=== PATIENT | female | born 1940 | race Caucasian/White ===

== ENCOUNTER 2020-09-08 11:53 | Observation (INO) | payer MEDICARE ==
[~2020-09-08] VITALS: Ht 167.6 cm; Wt 52.3 kg
--- NOTE | 2020-09-08 11:57 | NUR ---
PATIENT TO ROOM VIA WHEELCHAIR ACCOMPAINED BY DAUGHTER.
[2020-09-08] MEDS ORDERED: DONEPEZIL HCL5 M1 PO (12:30)
[2020-09-08] MEDS ORDERED: ALPRAZOLAM1 MG PO (12:30)
--- NOTE | 2020-09-08 12:30 | NUR ---
PT RESTING ON STREETCHER IN NO APPARENT DISTRESS. RESP EVEN AUN UNLABORED. SKIN WARM AND DRY. VERALIZES NO NEEDS AT THIS TIME.
[2020-09-08] MEDS ORDERED: LEVETIRACETAM500 MG PO (12:31)
[2020-09-08] MEDS ORDERED: DIVALPROEX SOD250 MG PO (12:31)
[2020-09-08] MEDS ORDERED: SERTRALINE50 MG PO (12:32)
[2020-09-08] MEDS ORDERED: SEROQUEL25 MG PO (12:33)
[2020-09-08] MEDS ORDERED: ATIVAN1 M1 PO (12:34)
--- NOTE | 2020-09-08 13:30 | NUR ---
PT RESTING ON STRETCHER IN NO APPARENT DISTRESS. RESP EVEN AN UNLABORED. SKIN WAWRM AND DRY. VERBALIZES NO NEEDS AT THIS TIME. DAUGHTER BEDSIDE. CALL LIGHT WITHIN REACH.
--- NOTE | 2020-09-08 14:00 | NUR ---
PT RETURNS FROM RADIOLOGY. ADVISED DAUGHTER AND PT OF WAIT TIME FOR RESULTS. VERBALIZED UNDERSTANDING. DENIES ANY NEEDS. CALL LIGHT WITHIN REACH.
--- NOTE | 2020-09-08 15:00 | NUR ---
PT RESTING ON STRETCHER COMFORTABLY AT THISD TIME. NEW IV ESTABLISHED. DAUGHTER LEFT TO GO HOME AFTER SPEAKING WITH MD RAMOS IS AWARE OF ADMIT
--- NOTE | 2020-09-08 16:00 | NUR ---
PATIENT UP AT FROM BED STANDING IN ROOM. SHE WAS ESCORTED BACK TO BED AND PROVIDED WITH WARM BLANKETS. PATIENT NOW RESTING IN STRETCHER WITH EYES CLOSED. SHE REMAINS IN WITHIN EYE CONTACT OF NURSING STAFF.
[2020-09-08 16:17] LABS: HEMATOCRIT 47.1 % (37.0-47.0); HEMOGLOBIN 14.5 g/dl (12.0-16.0); IMMATURE GRANULOCYTES 0.4 % (0.0-5.0); MEAN CELL VOLUME 93.5 fL CALC (80.0-100.0); MEAN CORPUSCULAR HGB 28.8 pG CALC (26.0-32.0); MEAN CORPUSCULAR HGB CONC 30.8 g/dL CAL (32.0-36.0); NEUT# 6.12 thou/uL (2.00-7.15); RED BLOOD COUNT 5.04 mill/uL (4.20-5.60); RED CELL DISTRI WIDTH 12.2 % (11.5-15.5)
[2020-09-08 16:29] LABS: PROTHROMBIN TIME 10.2 SECONDS (9.0-12.5)
[2020-09-08 16:30] LABS: ALBUMIN 4.2 g/dL (3.2-5.0); ALKALINE PHOSPHATASE 68 u/l (38-126); BILIRUBIN, TOTAL 0.5 mg/dL (0.0-1.4); BUN 31 mg/dL (8-23); BUN/CREATININE RATIO 31 (12-20 (CALC)); CARBON DIOXIDE 29 mmol/l (22-30); CHLORIDE 106 mmol/l (95-108); GFR 53 ML/MIN (>=60 (CALC)); GFR FOR AFR.AMER. > 60 ML/MIN (>=60 (CALC)); SODIUM 143 mmol/l (137-146); TOTAL PROTEIN 7.8 g/dL (6.3-8.2)
[2020-09-08 16:31] LABS: ANION GAP 13 (6-22 (CALC)); POTASSIUM 5.3 mmol/l (3.5-5.1); SGOT/AST 49 u/l (9-36)
--- NOTE | 2020-09-08 17:00 | NUR ---
PT ATTEMPTING TO GET OOB. REORIENTED TO REMAIN IN BED. BP CUFF AND SPO2 PLACED BACK ON PT. PT IN VIEW OF THIS NURSE.
--- NOTE | 2020-09-08 18:18 | NUR ---
PT RESTING ON STRETCHER, PT ATTEMPTING TO GET OOB. REPOSITIONED PT IN BED. ADVISED PT TO REMAIN IN BED. PT IN VIEW OF THIS NURSE.
--- NOTE | 2020-09-08 18:29 | NUR ---
PT BECOMING RESTLESS IN BED. MEDICATED WITH ATIVAN PO PER NOV ORDER. TOLERATED ADMINISTRATION WELL. PT IN VIEW OF NURSE.
--- NOTE | 2020-09-08 18:56 | NUR ---
REPORT GIVEN TO TIANA MULLINS ([facility])
--- NOTE | 2020-09-08 19:00 | NUR ---
REPORT GIVEN TO STACEY MONTIEL IN ED FOR TRANSPORT TO [facility].
--- NOTE | 2020-09-08 19:25 | NUR ---
TRANSPORTED PT TO ROOM 261.
[2020-09-08 19:50] VITALS: BP 152/68
--- NOTE | 2020-09-08 23:16 | NUR ---
UNABLE TO OBTAIN HISTORY OR INFO FROM PATIENT DUE TO DEMENTIA, HX OF ALZHEIMERS. SPOKE WITH PATIENT DAUGHTER VIKY BLAKELY ON THE PHONE#[phone]. DAUGHTER STATES THAT SHE IS THE CAREGIVER FOR HER MOTHER AND THAT THEY RECENTLY RELOCATED TO [place] FROM [facility]. THEY LIVE WITH PATIENT SISTER THAT THE DAUGHTER IS ALSO TAKING CARE OF. PATIENT WAS RECENTLY DISCHARGED FROM [facility] [place]. PATIENT WITH THE HISTORY OF ALZHEIMERS, SEIZURES AND HTN. ALLERGIC TO PCN. INCONT AT TIMES OF BOWEL AND BLADDER. PATIENT IS CURRENTLY EATING SNACK AND JUICE. BED ALARM IN PLACE FOR PATIENT SAFETY. SIDERAILS PADDED FOR SEIZURE PRECAUTIONS. CALL LIGHT IN REACH. WILL CONT TO MONITOR.
--- NOTE | 2020-09-09 03:07 | NUR ---
PATIENT POSITIONED ON RIGHT SIDE WITH EYES CLOSED. RESPS ARE EVEN AND UNLABORED. BED ALARM IN PLACE FOR PATIENT SAFETY. CALL LIGHT IN REACH. WILL CONT TO MONITOR.
[2020-09-09 04:00] VITALS: BP 117/69
--- NOTE | 2020-09-09 04:56 | NUR ---
PATIENT APPEARS SLEEPING AT THIS TIME WITH EYES CLOSED. RESPS ARE EVEN AND UNLABORED. BED ALARM IN PLACE FOR PATIENT SAFETY. SIDERAILS PADDED FOR SEIZURE PRECAUTIONS. CALL LIGHT IN REACH. WILL CONT TO MONITOR.
[2020-09-09 05:27] LABS: HEMATOCRIT 44.7 % (37.0-47.0); HEMOGLOBIN 13.3 g/dl (12.0-16.0); IMMATURE GRANULOCYTES 0.5 % (0.0-5.0); MEAN CELL VOLUME 94.7 fL CALC (80.0-100.0); MEAN CORPUSCULAR HGB 28.2 pG CALC (26.0-32.0); MEAN CORPUSCULAR HGB CONC 29.8 g/dL CAL (32.0-36.0); NEUT# 5.06 thou/uL (2.00-7.15); RED BLOOD COUNT 4.72 mill/uL (4.20-5.60); RED CELL DISTRI WIDTH 12.2 % (11.5-15.5)
[2020-09-09 05:43] LABS: ANION GAP 13 (6-22 (CALC)); BUN 28 mg/dL (8-23); BUN/CREATININE RATIO 34 (12-20 (CALC)); CARBON DIOXIDE 26 mmol/l (22-30); CHLORIDE 107 mmol/l (95-108); CREATININE 0.8 mg/dL (0.5-1.0); GFR > 60 ML/MIN (>=60 (CALC)); GFR FOR AFR.AMER. > 60 ML/MIN (>=60 (CALC)); SODIUM 142 mmol/l (137-146)
[2020-09-09 05:44] LABS: POTASSIUM 3.8 mmol/l (3.5-5.1)
[2020-09-09 08:05] VITALS: BP 145/58
--- NOTE | 2020-09-09 08:05 | NUR ---
ASSESSMENT IS COMPLETED: IV SITE IS FREE FROM REDNESS OR EDEMA. HR IS REG,PULSES ARE STRONG X4, ABD IS SOFT WITH ACTIVE BS. BREATH SOUNDS ARE CLEAR, BILATERALLY. LEFT LEG WARM TO THE TOUCH. CONTINUE TO OSBERVE AND MONITOR.
[2020-09-09] MEDS ORDERED: XARELTO STARTER1 TAB PO (11:50)
--- NOTE | 2020-09-09 12:15 | NUR ---
PT IS RELAXING IN BED. DR AQUINO IN TO VISIT WITH PT. CONTINUE TO OBSERVE AND MONITOR.
--- NOTE | 2020-09-09 14:28 | NUR ---
PT TRANSPORTED VIA WC WITH STAFF. IV SITE DISCONITNUED CATHETER INTACT. DISCHARGE INSTRUCTIONS GIVEN TO FAMILY AT THE CAR. DUE TO PT NOT UNDERSTANDING. Discharge instructions given. Patient verbalizes understanding of same. Discharged in stable condition via Wheelchair to Home with family. All belongings sent with pt.
== END 2020-09-09 14:28 | disposition home health service (06) ==
LOC: ED 11:53 → ED-I 14:41 → ED 15:26 → MS2 15:27
PROVIDERS: Emergency Medicine; ADMIT Internal Medicine; ATTEND Internal Medicine
DX: I82.811 Embolism and thrombosis of superficial veins of right lower extremity (principal); I10 Essential (primary) hypertension; F03.90 Unspecified dementia, unspecified severity, without behavioral disturbance, psychotic disturbance, mood disturbance, and anxiety; F41.9 Anxiety disorder, unspecified; F32.9 Major depressive disorder, single episode, unspecified; Z20.828 Contact with and (suspected) exposure to other viral communicable diseases
CPT/HCPCS: J1650